=== PATIENT | male | born 1950 | race Caucasian/White ===

== ENCOUNTER 2018-04-05 13:25 | Outpatient (RCR) | payer OTHER, MEDICARE, BC | END 2018-04-13 | disposition home or self-care (01) | LOC: COL.CR | DX: I21.9 Acute myocardial infarction, unspecified (principal); Z95.5 Presence of coronary angioplasty implant and graft ==

== ENCOUNTER 2018-07-21 13:15 | Outpatient (RCR) | payer OTHER, MEDICARE, BC | END 2018-07-23 | disposition home or self-care (01) | LOC: COL.CR | DX: Z48.812 Encounter for surgical aftercare following surgery on the circulatory system (principal); Z95.5 Presence of coronary angioplasty implant and graft ==

== ENCOUNTER 2018-09-01 16:00 | Outpatient (RCR) | payer OTHER, MEDICARE, BC | END 2018-09-06 06:10 | disposition home or self-care (01) | LOC: COL.CR 16:00 | DX: Z48.812 Encounter for surgical aftercare following surgery on the circulatory system (principal); Z95.5 Presence of coronary angioplasty implant and graft ==

== ENCOUNTER 2019-09-12 14:38 | Outpatient (RCR) | payer SELFPAY | END 2019-09-16 | disposition still patient (30) | LOC: COL.CR | DX: Z02.89 Encounter for other administrative examinations (principal) ==

== ENCOUNTER 2019-12-14 14:55 | Outpatient (RCR) | payer SELFPAY | END 2019-12-16 | disposition still patient (30) | LOC: COL.CR | DX: Z02.89 Encounter for other administrative examinations (principal) ==

== ENCOUNTER 2020-01-23 11:03 | Outpatient (RCR) | payer SELFPAY ==
[2020-03-10] MEDS ORDERED: NORVASC 5MG5 MG/TAB PO ×2 (11:10→11:38)
[2020-03-10] MEDS ORDERED: THE MEDICINE S200 M2 PO (11:11)
[2020-03-10] MEDS ORDERED: VITAMIN C500 MG PO (11:11)
[2020-03-10] MEDS ORDERED: EPA FISH OIL1 SGL PO ×2 (11:11→17:25)
[2020-03-10] MEDS ORDERED: PLAVIX 75MG TAB75 MG PO (11:11)
[2020-03-10] MEDS ORDERED: ASPIRIN 81M81 MG/TA2 PO (11:12)
[2020-03-10] MEDS ORDERED: FLONASEALLERGY NS ×2 (11:38→17:26)
[2020-03-10] MEDS ORDERED: PRALUENT P150 MG/1 M SQ (11:42)
[2020-03-10] MEDS ORDERED: VITAMINC1000TA PO (17:19)
[2020-03-10] MEDS ORDERED: DULCOLAX STOOL100 MG PO (17:23)
[2020-03-10] MEDS ORDERED: COENZYME Q-1030 MG PO (17:23)
[2020-03-10] MEDS ORDERED: VITAMIN D 1001000 IU PO (17:27)
[2020-03-10] MEDS ORDERED: CLOBETASOL 0.05% TOP (17:33)
[2020-03-10] MEDS ORDERED: TEMOVATE0.05% TP (17:34)
[2020-03-10] MEDS ORDERED: HCTZ 25MG TAB25 MG PO (17:37)
[2020-03-10] MEDS ORDERED: ADVIL200 MG PO (17:38)
[2020-03-10] MEDS ORDERED: NITROSTAT0.4 MG/TAB SL (17:39)
[2020-03-10] MEDS ORDERED: B-121000 MCG PO (17:40)
[2020-03-11] MEDS ORDERED: COREG 3.123.125 MG/T PO (12:26)
== END 2020-03-25 | disposition home or self-care (01) ==
LOC: COL.CR
DX: Z02.89 Encounter for other administrative examinations (principal)

== ENCOUNTER 2020-07-02 14:16 | Outpatient (RCR) | payer MEDICARE, BC ==
[~2020-07-02 14:16] MED LIST: ADVIL200 MG PO; ASPIRIN 81M81 MG/TA2 PO; B-121000 MCG PO; CLOBETASOL 0.05% TOP; COENZYME Q-1030 MG PO; COREG 3.123.125 MG/T PO; DULCOLAX STOOL100 MG PO; EPA FISH OIL1 SGL PO; FLONASEALLERGY NS; HCTZ 25MG TAB25 MG PO; NITROSTAT0.4 MG/TAB SL; NORVASC 5MG5 MG/TAB PO; PLAVIX 75MG TAB75 MG PO; PRALUENT P150 MG/1 M SQ; TEMOVATE0.05% TP; THE MEDICINE S200 M2 PO; VITAMIN C500 MG PO; VITAMIN D 1001000 IU PO; VITAMINC1000TA PO
== END 2020-07-06 | disposition home or self-care (01) ==
LOC: COL.CR
DX: Z48.812 Encounter for surgical aftercare following surgery on the circulatory system (principal); Z95.5 Presence of coronary angioplasty implant and graft

== ENCOUNTER 2020-10-01 15:18 | Outpatient (RCR) | payer SELFPAY | END 2020-10-02 | disposition home or self-care (01) | LOC: COL.CR | DX: Z02.89 Encounter for other administrative examinations (principal) ==

== ENCOUNTER 2020-12-31 14:22 | Outpatient (RCR) | payer SELFPAY | END 2021-01-04 | disposition home or self-care (01) | LOC: COL.CR | DX: Z02.89 Encounter for other administrative examinations (principal) ==

== ENCOUNTER 2021-01-23 15:59 | Outpatient (RCR) | payer SELFPAY | END 2021-04-05 | disposition home or self-care (01) | LOC: COL.CR | DX: Z02.89 Encounter for other administrative examinations (principal) ==

== ENCOUNTER 2021-04-10 16:15 | Outpatient (RCR) | payer OTHER | END 2021-05-17 | disposition home or self-care (01) | LOC: COL.CR | DX: Z48.812 Encounter for surgical aftercare following surgery on the circulatory system (principal); Z98.61 Coronary angioplasty status ==

== ENCOUNTER 2021-09-23 14:20 | Outpatient (RCR) | payer OTHER | END 2021-10-20 | disposition home or self-care (01) | LOC: COL.CR | DX: Z48.812 Encounter for surgical aftercare following surgery on the circulatory system (principal); Z95.5 Presence of coronary angioplasty implant and graft ==

== ENCOUNTER 2021-11-04 12:14 | Outpatient (RCR) | payer OTHER | END 2021-11-06 | disposition home or self-care (01) | LOC: COL.CR | DX: Z48.812 Encounter for surgical aftercare following surgery on the circulatory system (principal); Z98.61 Coronary angioplasty status ==

== ENCOUNTER → 2021-12-07 | Outpatient (RCR) | payer OTHER | END | disposition home or self-care (01) | LOC: COL.CR | DX: Z48.812 Encounter for surgical aftercare following surgery on the circulatory system (principal); Z95.5 Presence of coronary angioplasty implant and graft ==

== ENCOUNTER 2021-12-21 15:18 | Outpatient (RCR) | payer OTHER, MEDICARE, BC | END 2021-12-25 14:28 | disposition home or self-care (01) | LOC: COL.CR 15:18 | DX: Z48.812 Encounter for surgical aftercare following surgery on the circulatory system (principal); Z98.61 Coronary angioplasty status ==

== ENCOUNTER 2022-02-03 11:19 | Outpatient (RCR) | payer OTHER | END 2022-02-04 | disposition home or self-care (01) | LOC: COL.CR | DX: Z48.812 Encounter for surgical aftercare following surgery on the circulatory system (principal); Z95.5 Presence of coronary angioplasty implant and graft; I21.9 Acute myocardial infarction, unspecified ==

== ENCOUNTER 2022-02-15 12:14 | Outpatient (RCR) | payer OTHER | END 2022-02-19 15:57 | disposition home or self-care (01) | LOC: COL.CR 12:14 | DX: Z48.812 Encounter for surgical aftercare following surgery on the circulatory system (principal); Z95.5 Presence of coronary angioplasty implant and graft; I25.2 Old myocardial infarction ==

== ENCOUNTER 2022-05-05 12:27 | Outpatient (RCR) | payer OTHER | END 2022-05-06 | disposition home or self-care (01) | LOC: COL.CR | DX: Z95.5 Presence of coronary angioplasty implant and graft (principal); Z48.812 Encounter for surgical aftercare following surgery on the circulatory system; I25.2 Old myocardial infarction ==

== ENCOUNTER 2022-05-07 06:58 | Outpatient (RCR) | payer OTHER | END 2022-06-06 | LOC: COL.CR | DX: Z29.8 Encounter for other specified prophylactic measures (principal) ==

== ENCOUNTER 2022-12-06 12:09 | Outpatient (RCR) | payer OTHER | END 2022-12-07 | disposition home or self-care (01) | LOC: COL.CR | DX: Z48.812 Encounter for surgical aftercare following surgery on the circulatory system (principal); Z95.5 Presence of coronary angioplasty implant and graft; I25.2 Old myocardial infarction ==

== ENCOUNTER 2022-12-31 12:38 | Outpatient (RCR) | payer OTHER | END 2023-01-04 | disposition home or self-care (01) | LOC: COL.CR | DX: Z48.812 Encounter for surgical aftercare following surgery on the circulatory system (principal); Z98.61 Coronary angioplasty status ==

== ENCOUNTER → 2023-02-04 | Outpatient (RCR) | payer OTHER | END | disposition home or self-care (01) | LOC: COL.CR | DX: Z48.812 Encounter for surgical aftercare following surgery on the circulatory system (principal); Z98.61 Coronary angioplasty status ==

== ENCOUNTER 2023-03-04 15:45 | Outpatient (RCR) | payer OTHER | END 2023-03-06 | disposition home or self-care (01) | LOC: COL.CR | DX: Z48.812 Encounter for surgical aftercare following surgery on the circulatory system (principal); Z98.61 Coronary angioplasty status ==

== ENCOUNTER 2024-08-16 12:02 | Day surgery (SDC) | payer OTHER ==
[~2024-08-16] VITALS: Ht 182.9 cm; Wt 106.0 kg
[~2024-08-16 12:02] MED LIST changes: +LR 1,000 ML IV ONE; +Ondansetron 4 MG/2 ML VIAL IV PRN
[2024-08-16 12:33] VITALS: BP 145/83; PULSE 63; TEMP 97.6
[2024-08-16] MEDS ORDERED: Lidocaine PF 2% (20 MG/ML) 5 ML VIAL ONE (14:12)
[2024-08-16 15:00] VITALS: BP 118/65; PULSE 62; TEMP 97.5
[2024-08-16] MEDS ORDERED: XARELTO20 MG PO (15:06)
[2024-08-16 15:15] VITALS: BP 119/66; PULSE 60
--- NOTE | 2024-08-16 15:25 | NUR ---
1500 RETURNS TO ROOM 4 PER CART. AWAKE, ALERT. RESP UNLABORED. AMBULATES TO RECLINER WITH STANDBY ASSIST. DENIES NAUSEA OR ABD PAIN. VITAL SIGNS OBTAINED. CALL LIGHT AT SIDE. IN ROOM. 1505 TOL[address] PO SODA WITHOUT NAUSEA. DISCHARGE INSTRUCTIONS REVIEWED. PATIENT AND VERBALIZE UNDERSTANDING. COPY PROVIDED IN DISCHARGE FOLDER [address] DR MENDOZA HERE TO VISIT WITH PATIENT 1520 DRESSES SELF
== END 2024-08-16 15:25 | disposition home or self-care (01) ==
LOC: SDCO 12:02
DX: Z12.11 Encounter for screening for malignant neoplasm of colon (principal); D12.3 Benign neoplasm of transverse colon; Z95.5 Presence of coronary angioplasty implant and graft; Z95.1 Presence of aortocoronary bypass graft; Z86.73 Personal history of transient ischemic attack (TIA), and cerebral infarction without residual deficits; Z79.01 Long term (current) use of anticoagulants; Z95.0 Presence of cardiac pacemaker; Z79.02 Long term (current) use of antithrombotics/antiplatelets
CPT/HCPCS: J2704; J7120